=== PATIENT | male | born 1970 | race Two or more races ===

== ENCOUNTER 2024-03-23 07:50 | Day surgery (SDC) | payer OTHER ==
[2024-03-20 11:41] LABS: PH,URINE 5.5 (5.0-8.0); URINE APPEARANCE Clear; URINE BILIRRUBIN Negative (NEGATIVE); URINE BLOOD Negative; URINE COLOR Yellow; URINE GLUCOSE Negative (NEGATIVE); URINE LEUKOCYTE Negative; URINE NITRATE Negative; URINE PROTEIN Trace (NEGATIVE); URINE UROBILINOGEN 0.2 E.U./dl
[2024-03-20 11:46] LABS: URINE BACTERIA 16.3 uL (0.0-1933); URINE EPITHELIAL CELLS 1.9 uL (0.0-38.8); URINE WBC 4.7 uL (0.0-23.2)
[2024-03-20 11:48] LABS: HEMATOCRIT 47.4 % (39.0-48.0); HEMOGLOBIN 16.4 g/dL (13-16.00); MEAN CELL VOLUME 81.8 fL (80.0-100.00); MEAN CORPUSCULAR HEMOGLOBIN 28.4 pg (27.00-32.0); MEAN CORPUSCULAR HGB CONC 34.6 g/dl (32.0-36.0); PLATELET COUNT 214 K/uL (150-450); RED BLOOD COUNT 5.79 M/uL (4.00-6.00)
[2024-03-20 11:50] LABS: URINE RBC 1.8 uL (0.0-20.8)
[2024-03-20 12:44] LABS: INR 0.98; PARTIAL THROMBOPLASTIN TIME 29.8 SECONDS (22.0-34.0); PROTHROMBIN TIME 10.3 SECONDS (9.0-11.5)
[2024-03-20 12:45] LABS: ALBUMIN 3.9 gm/dL (3.4-5.0); BILIRUBIN TOTAL 0.41 mg/dL (0.3-1.2); CALCIUM 9.5 mg/dL (8.5-10.1); CREATININE SERUM 0.83 mg/dL (0.70-1.30); GFR 96.55; GLOBULINA 3.4 G/DL (2.4-3.5); POTASSIUM 4.62 mEq/L (3.5-5.1); TOTAL PROTEIN 7.3 gm/dL (6.4-8.2)
[~2024-03-23 07:50] MED LIST: COZAAR50 MG
[2024-03-23] MEDS ORDERED: CEFTRIAXONE SODIUM 2,000 MG VIAL ONE (09:49)
[2024-03-23] MEDS ORDERED: METRONIDAZOLE/SODIUM CHLORIDE 500 MG/100 ML PIGGYBACK IV ONE (09:49)
[2024-03-23] MEDS ORDERED: DIBUCAINE 30 GM TUBE ONE (11:36)
[2024-03-23] MEDS ORDERED: BUPIVACAINE LIPOSOME/PF 266 MG/20 ML VIAL IJ ONE (11:37)
[2024-03-23] MEDS ORDERED: HEMOSTATIC MATRIX 1 KIT KIT TOP ONE (11:37)
[2024-03-23] MEDS ORDERED: SUGAMMADEX SODIUM 200 MG/2 ML VIAL IV ONE ×2 (12:45→13:02)
[2024-03-23] MEDS ORDERED: TAMSULOSIN HCL 0.4 MG CAP PO ONE ×2 (14:15→14:32)
[2024-03-23] MEDS ORDERED: OXYC1TAB9 PO (14:16)
== END 2024-03-23 16:30 | disposition home or self-care (01) ==
LOC: CIR.AMB 07:50
PROVIDERS: ATTEND Surgery
DX: K60.1 Chronic anal fissure (principal); K62.89 Other specified diseases of anus and rectum; K62.4 Stenosis of anus and rectum; K62.5 Hemorrhage of anus and rectum; K59.09 Other constipation; I10 Essential (primary) hypertension